=== PATIENT | female | born 1965 | race Caucasian/White ===

== ENCOUNTER 2017-05-15 10:10 | Emergency (ER) | payer SELFPAY ==
[2017-05-15] MEDS ORDERED: Albuterol Sulfate 1.25 MG/3 ML NEB ONE ×2 (10:26→11:02)
[2017-05-15] MEDS ORDERED: Sodium Chloride 0.9% 100 ML ONE (10:48)
[2017-05-15] MEDS ORDERED: methylPREDNISolone Sod Succ/PF 125 MG/2 ML VIAL ONE (10:48)
[2017-05-15] MEDS ORDERED: cefTRIAXone\\ROCEPHIN 2 GM VIAL ONE (10:48)
[2017-05-15 10:53] LABS: #Basophils 0.2 thou/uL (0.0-0.2); #Eosinphils 0.1 thou/uL (0.0-0.7); #Lymphocytes 2.3 thou/uL (1.20-3.40); #Monocytes 0.5 thou/uL (0.11-0.59); #Neutrophils 8.9 thou/uL (1.40-6.50); %Basophils 1.3 % (0.0-1.0); %Eosinophils 1.1 % (0.0-10.0); %Lymphocytes 19.3 % (21.0-51.0); %Monocytes 3.9 % (0.0-10.0); %Neutrophils 74.4 % (42.0-75.0); Hemoglobin 14.7 g/dL (12.0-16.0); Mean Corpuscular HGB CONC 32.2 g/dL (32.0-36.0); Mean Corpuscular Hemoglobin 30.3 pg (27.0-31.0); Mean Platelet Volume 6.8 fL (7.4-10.4); Platelet Count 287 thou/uL (130-400); RBC Distribution Width 12.2 % (11.5-14.5); Red Blood Cell (RBC) Count 4.86 mill/uL (4.20-5.40)
[2017-05-15 11:06] LABS: ALT (SGPT) 22 U/L (8-55); AST (SGOT) 15 U/L (5-34); Alkaline Phosphatase 92 U/L (40-150); Anion Gap 13 mmol/L (10-20); BUN (Urea Nitrogen) 11 mg/dL (7.0-18.7); Bilirubin, Total 0.4 mg/dL (0.2-1.2); Calc. Creatinine Clearance 0 mL/min (70-130); Calcium 9.2 mg/dL (7.8-10.44); Carbon Dioxide 30 mmol/L (22-29); Chloride 93 mmol/L (98-107); Estimated GFR-MDRD Greater than 90; Globulin 3.3 g/dL (2.4-3.5); Glucose 231 mg/dL (70-105); Potassium 4.1 mmol/L (3.5-5.1); Protein, Total 7.3 g/dL (6.0-8.3); Sodium 132 mmol/L (136-145)
[2017-05-15 12:57] LABS: Bilirubin Negative (Negative); Blood, Urine Moderate (Negative); Clarity Clear (Clear); Glucose, Urine (Dipstick) 100 mg/dL (Negative); Leukocyte Negative (Negative); Nitrite Negative (Negative); Protein, Urine (Dipstick) 30 mg/dL (Neg-Trace); Specific Gravity, Urine 1.015 (1.005-1.030); Urobilinogen 0.2 mg/dL (0.2-1.0); pH, Urine 6.5 (5.0-9.0)
[2017-05-15 13:05] LABS: Bacteria/HPF 1+ HPF (None Seen); RBC/HPF 0-3 HPF (0-3); Squamous Epithelial 0-3 HPF (0-3); WBC/HPF 0-3 HPF (0-3)
--- NOTE | 2017-05-15 16:25 | RAD ---
PORTABLE CHEST 05/15/17 The heart is normal in size. No major lobar infiltrate or effusion was seen. At most, there might be a little minor streaking below the right hilum near the right base but the significance of the find ing is equivocal. The bony structures appear normal. The trachea is midline. IMPRESSION: Equivocal right sided streaking. POS: HOME
--- NOTE | 2017-05-15 16:28 | RAD ---
SOFT TISSUE NECK 05/15/17 Several views are provided in the AP and lateral projections. Many have motion artifact on them whic h degrade the images. While difficult to be certain, the thickness of the epiglottis seems mildly greater than normal. I c annot exclude slight swelling. The prevertebral soft tissues are normal in thickness. No opaque fore ign bodies were seen. the visible portions of the cervical vertebrae were unremarkable. IMPRESSION: Possible mild thickening of the epiglottis. Correlate with clinical exam. POS: HOME
== END 2017-05-15 13:23 | disposition short-term general hospital (02) ==
LOC: BURERS 10:10
DX: J05.10 Acute epiglottitis without obstruction (principal); I10 Essential (primary) hypertension; F17.210 Nicotine dependence, cigarettes, uncomplicated
CPT/HCPCS: 36415; 70360; 71010; 80053; 81003; 81015; 83605; 85025; 87040; 87086; 94640; 96361; 96365; 96367; 96375; J0696; J2930; J3490; J7050

== ENCOUNTER 2022-09-16 10:52 | Emergency (ER) | payer OTHER, BC ==
[2022-09-16] MEDS ORDERED: diphenhydrAMINE 50 MG/ML VIAL ONE (10:57)
[2022-09-16] MEDS ORDERED: Ondansetron PF 4 MG/2 ML Vial ONE (10:59)
[2022-09-16] MEDS ORDERED: Dexamethasone 10 MG/ML VIAL ONE (11:38)
[2022-09-16 11:52] LABS: #Basophils 0.2 thou/uL (0.0-0.2); #Eosinphils 0.1 thou/uL (0.0-0.7); #Lymphocytes 5.2 thou/uL (1.20-3.40); #Monocytes 0.7 thou/uL (0.11-0.59); #Neutrophils 7.8 thou/uL (1.40-6.50); %Basophils 1.1 % (0.0-1.0); %Eosinophils 0.9 % (0.0-10.0); Hemoglobin 16.7 g/dL (12.0-16.0); Mean Corpuscular Hemoglobin 31.7 pg (27.0-31.0); Mean Corpuscular Volume 96.2 fl (78.0-98.0); Mean Platelet Volume 7.7 fL (7.4-10.4); Platelet Count 370 10x3/uL (130-400); RBC Distribution Width 13.1 % (11.5-14.5); Red Blood Cell (RBC) Count 5.27 mill/uL (4.20-5.40)
[2022-09-16 12:32] LABS: ALT (SGPT) 29 U/L (8-55); Albumin 3.9 g/dL (3.5-5.0); Alkaline Phosphatase 90 U/L (40-110); Anion Gap 18 mmol/L (10-20); BUN (Urea Nitrogen) 16 mg/dL (9.8-20.1); Bilirubin, Total 0.3 mg/dL (0.2-1.2); CK (CPK) 69 U/L (29-168); Calc. Creatinine Clearance 0 mL/min (70-130); Calcium 8.5 mg/dL (7.8-10.44); Carbon Dioxide 22 mmol/L (22-29); Chloride 100 mmol/L (98-107); Estimated GFR 104; Globulin 2.7 g/dL (2.4-3.5); Glucose 310 mg/dL (70-105); Lipase 44 U/L (8-78); Potassium 4.2 mmol/L (3.5-5.1); Protein, Total 6.6 g/dL (6.0-8.3); Sodium 136 mmol/L (136-145)
[2022-09-16 12:49] LABS: AST (SGOT) 16 U/L (5-34); Magnesium 1.5 mg/dL (1.6-2.6)
[2022-09-16] MEDS ORDERED: EPINEPHrine 1 MG/ML VIAL ONE (13:26)
[2022-09-16] MEDS ORDERED: methylPREDNISolone Sod Succ/PF 125 MG/2 ML VIAL ONE (13:26)
== END 2022-09-16 12:42 | disposition short-term general hospital (02) ==
LOC: BURERS 10:52
DX: T78.3XXA Angioneurotic edema, initial encounter (principal); F17.210 Nicotine dependence, cigarettes, uncomplicated; I10 Essential (primary) hypertension; E11.9 Type 2 diabetes mellitus without complications
CPT/HCPCS: 71045; 80053; 82550; 83605; 83690; 83735; 85025; 93005; 96372; 96374; 96375; J0171; J1100; J1200; J2405; J2930

== ENCOUNTER 2024-03-26 16:32 | Outpatient (CLI) | payer BC, OTHER | END 2024-03-26 16:33 | disposition home or self-care (01) | LOC: BURRAD 16:32 | PROVIDERS: ATTEND Family Medicine | DX: M79.605 Pain in left leg (principal) ==